=== PATIENT | male | born 1990 | race African-American/Black ===

== ENCOUNTER 2018-04-15 15:40 | Emergency (ER) | payer SELFPAY ==
[~2018-04-15] VITALS: Ht 193 cm; Wt 90.7 kg
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
--- NOTE | 2018-04-15 17:30 | RAD ---
Indication: Bilateral swelling, tingling in the lower extremity is, chest abdominal pain for 2 months TECHNIQUE: AP chest and 2 views of the abdomen and pelvis COMPARISON: None FINDINGS: Heart is normal in size. Lungs are clear. No pneumothorax or pleural effusion. Visualized bony thorax within normal limits. No evidence of the peritoneum. No abnormally dilated bowel loops or air-fluid levels. No abnormal calcific densities projecting over the expected location of the kidneys or course of the bilateral ureters. Visualized bones are within normal limits. IMPRESSION: No acute findings. Electronically signed by: Rashid Bella DO (04/15/2018 5:27 PM) [facility]
[2018-04-15 17:35] LABS: BASO % 0 % (0-3); EOS # 0.1 x10^3/uL (0.0-0.7); EOS % 1 % (0-3); HEMATOCRIT 26.6 % (39.0-53.0); HEMOGLOBIN 9.6 g/dL (13.0-17.5); LYMPH # 1.3 x10^3/uL (1.0-4.8); LYMPH % 19 % (24-48); MEAN CORPUSCULAR HEMOGLOBIN 40 pg (25-35); MEAN CORPUSCULAR HGB CONC 36 g/dL (31-37); MEAN CORPUSCULAR VOLUME 111 fL (79-100); MONO # 0.5 x10^3/uL (0.0-1.1); MONO % 7 % (0-9); NEUT # 4.7 x10^3uL (1.8-7.7); NEUT % 72 % (31-73); PLATELET COUNT 285 x10^3/uL (140-400); RED BLOOD COUNT 2.39 x10^6/uL (4.30-5.70); RED CELL DISTRIBUTION WIDTH 22.8 % (11.5-14.5); WHITE BLOOD COUNT 6.6 x10^3/uL (4.0-11.0)
[2018-04-15 17:47] LABS: ALBUMIN 3.2 g/dL (3.4-5.0); ALBUMIN/GLOBULIN RATIO 0.8 (1.0-1.7); CREATININE 0.8 mg/dL (0.7-1.3); GFR 139.3; MAGNESIUM 1.6 mg/dL (1.8-2.4); TOTAL BILIRUBIN 1.3 mg/dL (0.2-1.0); TOTAL PROTEIN 7.1 g/dL (6.4-8.2)
[2018-04-15 17:49] LABS: POTASSIUM 2.8 mmol/L (3.5-5.1)
[2018-04-15] MEDS ORDERED: FUROSEMIDE 40 MG/4 ML VIAL. IVP SCH (18:00)
[2018-04-15] MEDS ORDERED: POTASSIUM CHLORIDE 20 MEQ TABLET.ER. PO ONE ×2 (18:00→19:30)
[2018-04-15 18:12] LABS: PLT ESTIMATE ADEQUATE (ADEQUATE)
[2018-04-15 18:13] LABS: ANISOCYTOSIS MOD
--- NOTE | 2018-04-15 18:14 | EKG ---
[facility] [address] [place] [address] Test Date: 2018-04-15 Test Time: 17:15:55 Pat Name: RUTHY KRUEGER Department: Room: Gender: M [employer]: : 1990 Requested By: MELYSSA BHATT Order Number: [id number] Reading MD: Yang Diamond MD Measurements Intervals [place] Rate: 70 P: 24 NV: 150 QRS: 16 QRSD: 98 T: 9 QT: 438 QTc: 476 Interpretive Statements SINUS RHYTHM NON-SPECIFIC ST/T CHANGES PROLONGED QT Electronically Signed On 04-19-2018 11:57:15 CDT by Yang Diamond MD
[2018-04-15 18:19] LABS: BILIRUBIN,URINE NEGATIVE (NEG); CLARITY,URINE CLEAR; COLOR,URINE YELLOW; NITRITE,URINE NEGATIVE (NEG); PH,URINE 6.5; PROTEIN,URINE NEGATIVE (NEG-TRACE)
[2018-04-15 18:26] LABS: BARBITURATES NEG (NEG); BENZODIAZEPINES NEG (NEG); CANNABINOIDS NEG (NEG); COCAINE NEG (NEG); METHADONE NEG (NEG); OPIATES NEG (NEG); PHENCYCLIDINE NEG (NEG)
[2018-04-15 18:27] LABS: AMPHETAMINE/METHAMPHETAMINE NEG (NEG)
[2018-04-15 18:47] LABS: BACTERIA,URINE 0 /HPF (0-FEW); RBC,URINE 0 /HPF (0-2); WBC,URINE OCC /HPF (0-4)
[2018-04-15 18:48] LABS: SQUAMOUS EPITHELIAL CELL,UR OCC /LPF
[2018-04-15] MEDS ORDERED: POTA20TA84 PO (19:15)
[2018-04-15] MEDS ORDERED: AMLO5TAB4 PO (19:15)
[2018-04-15 19:36] VITALS: BP 172/104
== END 2018-04-15 19:48 | disposition home or self-care (01) ==
LOC: ER 15:40
DX: R60.0 Localized edema (principal); I10 Essential (primary) hypertension; D64.9 Anemia, unspecified; E87.6 Hypokalemia; F10.10 Alcohol abuse, uncomplicated; Y90.9 Presence of alcohol in blood, level not specified
CPT/HCPCS: 36415; 74022; 80053; 80307; 81001; 82553; 83690; 83735; 83880; 84443; 84484; 85025; 87086; 93005; 96374; 99285; J1940; G0479